=== PATIENT | female | born 1980 | race Caucasian/White ===

== ENCOUNTER 2022-01-25 22:08 | Emergency (ER) | payer OTHER ==
[2022-01-25] MEDS ORDERED: SYMBICORT 16010.2 GM INH (22:43)
[2022-01-25] MEDS ORDERED: PREDNISONE 20MG20 MG PO (22:43)
[2022-01-25] MEDS ORDERED: VENTOLIN HFA IN18 GM INH (22:43)
[2022-01-25 22:46] LABS: EOSINOPHIL 12.3 % (0-5); HCT 39.7 % (37.0-47.0); HGB 12.8 g/dl (12.5-16.0); MCH 29.5 pg (25.0-31.0); MCHC 32.2 g/dL (32.0-36.0); MCV 91.5 fL (78.0-100.0); MONOCYTE 9.2 % (0-12); MPV 10.3 fL (6.0-9.5); NEUTROPHIL 48.2 % (41-80); NRBC 0; PLT 337 K/uL (150-400); RBC 4.34 M/uL (4.20-5.40); RDW 13.9 % (11.5-14.0); WBC 11.3 K/uL (4.0-10.5)
[2022-01-25] MEDS ORDERED: DUONEB 2.5-0.5M1 AMP INH (23:19)
[2022-01-25] MEDS ORDERED: AZITHROMYCIN250 MG PO (23:25)
== END 2022-01-25 23:33 | disposition home or self-care (01) ==
LOC: FER 22:08
PROVIDERS: Internal Medicine
DX: J45.901 Unspecified asthma with (acute) exacerbation (principal); Z79.51 Long term (current) use of inhaled steroids
CPT/HCPCS: 36415; 71045; 85025; 94640; J7512